=== PATIENT | female | born 1945 | race African-American/Black ===

== ENCOUNTER 2019-07-21 18:33 | Emergency (ER) | payer OTHER ==
[~2019-07-21] VITALS: Ht 154.9 cm; Wt 95.0 kg
[2019-07-21] MEDS ORDERED: ENALAPRIL 1.25MG/ML VIAL 1ML IV ONE (22:39)
[2019-07-21] MEDS ORDERED: CLONIDINE 0.2MG TABLET PO ONE (22:45)
[2019-07-22] MEDS ORDERED: CLONIDINE 0.1MG TABLET PO ONE (00:45)
[2019-07-22] MEDS ORDERED: HYDROCHLOROTHIAZIDE 25MG TABLET PO ONE (00:45)
[2019-07-22] MEDS ORDERED: CLONIDINE 0.1MG TABLET PO SCH (01:15)
[2019-07-22] MEDS ORDERED: HYDROCHLOROTHIAZIDE 25MG TABLET PO SCH (01:15)
[2019-07-22 01:38] VITALS: BP 104/60
== END 2019-07-22 01:41 | disposition home or self-care (01) ==
LOC: ER 18:33
DX: I16.0 Hypertensive urgency (principal); I10 Essential (primary) hypertension; R42 Dizziness and giddiness
CPT/HCPCS: 96374; 99283; J3490